=== PATIENT | female | born 1995 | race Caucasian/White ===

== ENCOUNTER 2019-04-30 11:45 | Emergency (ER) | payer OTHER, MEDICAID, SELFPAY ==
[2019-04-30 12:01] VITALS: BP 130/80; PULSE 72; RESP 15; TEMP 36.4; O2SAT 100; BMI 23.4
--- NOTE | 2019-04-30 13:31 | ED_ITS ---
HPI - Ear Problem <FLORIAN Arellano - Last Filed: 04/30/19 20:47> General Chief complaint: Ear Stated complaint: Ear ache Time Seen by Provider: 04/30/19 13:01 Source: patient and family Mode of arrival: ambulatory Limitations: no limitations History of Present Illness HPI Narrative: 23-year-old healthy female presents emergency department today complaining of left ear pressure and pain over the past 6 days. She states she has a 6/10 dull aching left-sided headache that has occurred intermittently over the past. She states she has a left upper wisdom tooth that is attempting to c ome, additionally she wears headphones for work. She denies any recent colds, sore throat, eye discharge, cough, shortness of breath, chest pain, fevers, or rhinorrhea. She does state that she has seasonal allergies and has been sneezing occasionally in the past few weeks. MD Complaint: ear pain Location: left ear Duration: constant Severity: mild Relieving factors: nothing Exacerbating factors: nothing Discharge from ear: no Associated symptoms ear: headache Treatment prior to arrival: none Related Data Previous Rx's Medication Instructions Recorded fluticasone propionate 1 spray NASAL BID #9.9 gram 04/30/19 Allergies Allergy/AdvReac Type Severity Reaction Status Date / Time No Known Drug Allergies Allergy Verified 04/30/19 12:25 Review of Systems <FLORIAN Arellano - Last Filed: 04/30/19 20:47> Review of Systems REVIEW OF SYSTEMS: GENERAL: Denies fever or chills. HENT: No head trauma, complains of left ear pain and congestion, see HPI. EYES: No loss of vision, double vision, eye pain, or irritation. CARDIOVASCULAR: No chest pain or syncope. RESPIRATORY: No shortness of breath or cough. GASTROINTESTINAL: No nausea, vomiting, diarrhea, or constipation. GENITOURINARY: No flank pain or dysuria. MUSCULOSKELETAL: No pain, weakness, or deformities. INTEGUMENTARY: No rash, lesions, or pruritus. NEURO: No numbness, tingling, memory loss, or confusion. PSYCH: No behavior or mood changes. PFSH <FLORIAN Arellano - Last Filed: 04/30/19 20:47> Medical History (Updated 04/30/19 @ 20:44 by FLORIAN Arellano) No significant medical problems (Acute) Seasonal allergies (Acute) Social History (Updated 04/30/19 @ 20:44 by FLORIAN Arellano) Smoking Status: Never smoker Social History (Updated 04/30/19 @ 20:44 by FLORIAN Arellano) Smoking Status: Never smoker Exam <FLORIAN Arellano - Last Filed: 04/30/19 20:47> Initial Vital Signs Initial Vital Signs: Vital Signs Temperature 97.6 F 04/30/19 12:01 Pulse Rate 72 04/30/19 12:01 Respiratory Rate 15 04/30/19 12:01 Blood Pressure 130/80 04/30/19 12:01 Pulse Oximetry 100 04/30/19 12:01 PHYSICAL EXAMINATION: GENERAL: Well groomed, alert, and cooperative. Answers questions promptly and appropriately. Vital signs noted. HENT: Normocephalic, atraumatic. Ear canals patent. Right TM intact without erythema, effusion, or opacities. Left TM intact with a small air bubble behind the TM possibly indicating the presence of an ear effusion. Oral mucosa is pink and moist. Oropharynx is without erythema, however postnasal drip noted. EYES: Conjunctiva pink, sclera white, no periorbital swelling. CARDIOVASCULAR: S1 and S2 sounds normal. Regular rate and rhythm, no murmurs, clicks, or bruits. No pedal edema. RESPIRATORY: Normal respiratory rate, trachea midline, airway patent. No stridor, nasal flaring or accessory muscle use. Lungs are clear in all [place] without wheeze, rhonchi, or crackles. MUSCULOSKELETAL: Normal gait and coordination. Equal tone and mass bilaterally. EXTREMITIES: CMS intact. Moves all extremities. SKIN: Warm, dry, soft, appropriate color for ethnicity. No lesions, rashes, or wounds. NEURO: Alert and Oriented X 3. Good coordination. No ataxia, or sensory deficits, or cognitive issues. PSYCH: Appropriate affect and mood. <Juli Cardoza MD - Last Filed: 05/11/19 07:59> Initial Vital Signs Initial Vital Signs: Vital Signs Temperature 97.6 F 04/30/19 12:01 Pulse Rate 72 04/30/19 12:01 Respiratory Rate 15 04/30/19 12:01 Blood Pressure 130/80 04/30/19 12:01 Pulse Oximetry 100 04/30/19 12:01 Course <FLORIAN Arellano - Last Filed: 04/30/19 20:47> Orders Ordered: Discontinued Medications Ketorolac Tromethamine (Toradol) 30 mg IM NOW ONE Stop: 04/30/19 13:29 Last Admin: 04/30/19 13:40 Dose: 30 mg Vital Signs - 8 hr 04/30/19 13:49 Pulse Rate 55 L Blood Pressure 114/43 L <Juli Cardoza MD - Last Filed: 05/11/19 07:59> Orders Ordered: Discontinued Medications Ketorolac Tromethamine (Toradol) 30 mg IM NOW ONE Stop: 04/30/19 13:29 Last Admin: 04/30/19 13:40 Dose: 30 mg Vital Signs - 8 hr 04/30/19 13:49 Pulse Rate 55 L Blood Pressure 114/43 L Medical Decision Making <FLORIAN Arellano - Last Filed: 04/30/19 20:47> Medical Records Medical records reviewed: Yes I reviewed the patient's medical records. MDM Narrative Medical decision making narrative: I suspect patient's symptoms are caused by an ear effusion due to exam and history and physical. However, the fact that her wisdom tooth is starting to come and may be contributing to her left ear pain. Less likely infection due to lack of findings on exam, as well as lack of systemic symptoms such as fever. Strict return precautions given and follow-up instructions discussed. Discharge Plan Departure Patient Disposition: Home Clinical Impression: Acute effusion of left ear, Acute dysfunction of left eustachian tube Discharge Date/Time: 04/30/19 13:50 Interventions: ED Discharge Assessment Last Done: 04/30/19 13:49 Instructions: Allergic Rhinitis Activity Restrictions/Additional Instructions: Thank you for entrusting me with your care today. As discussed, I think her symptoms are caused by fluid behind your ear, this is called an ear effusion and there is no evidence of infection. Please use a nasal spray that I prescribed for you, 1 spray in each nostril in the morning and the evening for 2 weeks. Follow up with your primary care provider in the next 2 weeks if your symptoms continue. Return to the emergency department if he develops increased redness have a steady your face, high fevers, uncontrollable nausea, or shortness of breath. If her insurance does not pay for the prescription, can use [id number] Nasacort. Prescriptions: New fluticasone propionate 50 mcg/actuation spray,suspension 1 spray NASAL BID Qty: 9.9 RF: 0
[2019-04-30] MEDS: KETOROLAC 60 MG/2 ML VIAL 30 MG IM (13:40)
[2019-04-30 13:49] VITALS: BP 114/43; PULSE 55
== END 2019-04-30 13:50 | disposition home or self-care (01) ==
PROVIDERS: Emergency Provider Nurse Practitioner
DX: H65.192 Other acute nonsuppurative otitis media, left ear (principal); H69.82 Other specified disorders of Eustachian tube, left ear
CPT/HCPCS: 96372; 99282; 99283; J1885